=== PATIENT | male | born 1990 | race Caucasian/White ===

== ENCOUNTER 2022-06-30 18:40 | Inpatient (IN) | payer OTHER ==
[~2022-06-30] VITALS: Ht 182.9 cm; Wt 127.0 kg
--- NOTE | 2022-06-30 18:51 | NUR ---
BIBS WITH C/C OF FEVER OVER THE LAST 4 DAYS. PT IS COVID VACCINATED, PT TESTED NEGATIVE WITH HOME ANTIGEN TEST. DENIES ANY N/V. REPORTS SMITH AND HOME TEMP HIGH 103 TODAY AT 1700. PT ALSO DM WITH REPORTED POC GLUCOSE OF 447. PT TAKES XULTOPHY 50 UNIT QHS, LAST DOSE LAST NIGHT BUT WAS OFF MED FOR ONE WEEK.
[2022-06-30 19:00] VITALS: BP_SYST 131
[2022-06-30] MEDS ORDERED: ACETAMINOPHEN 325 MG TABLET PO ONE (19:15)
[2022-06-30 19:58] LABS: BASOPHILS # (AUTO) 0.2 K/uL (0.0-0.2); BASOPHILS % (AUTO) 1.6 % (0.0-2.0); EOSINOPHILS % (AUTO) 0.2 % (0.0-4.0); HEMATOCRIT 41.8 % (36-54); LYMPHOCYTES # (AUTO) 1.7 K/uL (1.0-5.5); LYMPHOCYTES % (AUTO) 14.2 % (20.5-51.5); MEAN CORPUSCULAR VOLUME 83 fL (79.0-98.0); MONOCYTES # (AUTO) 0.7 K/uL (0.0-1.0); MONOCYTES % (AUTO) 5.6 % (1.7-9.3); NEUTROPHILS # (AUTO) 9.2 K/uL (1.8-7.7); NEUTROPHILS % (AUTO) 78.4 % (40.0-70.0); PLATELET COUNT (AUTO) 211 K/uL (130-430); RED BLOOD CELL COUNT(AUTO) 5.06 MIL/uL (4.2-6.2); RED CELL DISTRIBUTION WIDTH 12.4 % (9.0-15.0); WHITE BLOOD COUNT (AUTO) 11.8 K/uL (4.8-10.8)
[2022-06-30 20:05] LABS: CALCIUM 9.5 mg/dL (8.4-11.0); POTASSIUM 4.1 mmol/L (3.5-5.1)
[2022-06-30 20:10] LABS: ALBUMIN 3.4 g/dL (3.4-4.8); TOTAL BILIRUBIN 1.7 mg/dL (0.0-1.0)
--- NOTE | 2022-06-30 20:59 | NUR ---
AT 8:40 COVID TEST WAS TAKEN BY SAMPLING BOTH NARES. DELIVERED TO LAB.
--- NOTE | 2022-06-30 21:00 | NUR ---
pt bib CC Headache and fever. Pt 99.4 Nausea and epsiode of vomiting this morning. Pt has lack of appetite. Pt onset 4 days ago.
[2022-06-30 21:15] LABS: BILIRUBIN,URINE 1+ (NEGATIVE); BLOOD, URINE NEGATIVE (NEGATIVE); CLARITY/URINE CLEAR (CLEAR); GLUCOSE,URINE 2+ (NEGATIVE); KETONES,URINE TRACE (NEGATIVE); LEUKOCYTE ESTERASE ,URINE NEGATIVE (NEGATIVE); NITRITE, URINE NEGATIVE (NEGATIVE); PROTEIN URINE 2+ (NEGATIVE)
[2022-06-30 21:23] LABS: COLOR,URINE AMBER (YELLOW)
[2022-06-30 21:24] LABS: BACTERIA,URINE None Seen /HPF (None Seen); RBC,URINE NONE SEEN /HPF (0-3); WBC,URINE 0-3 /HPF (0-3)
[2022-06-30 21:25] LABS: MUCUS,URINE None Seen /LPF (None Seen)
--- NOTE | 2022-06-30 23:34 | NUR ---
BLOOD SUGAR 243
[2022-07-01] MEDS ORDERED: NACL 0.9% 1,000 ML IV ONE (01:00)
[2022-07-01] MEDS ORDERED: ACETAMINOPHEN 500 MG TABLET PO ONE (02:00)
--- NOTE | 2022-07-01 03:32 | NUR ---
BLOOD SUGAR 241 AFTER A LITER OF NORMAL SALINE
[2022-07-01] MEDS ORDERED: AZITHROMYCIN 250 MG TABLET PO ONE (05:45)
[2022-07-01] MEDS ORDERED: cefTRIAXone 1 GM IVPB PREMIX 50 ML IV ONE (05:45)
--- NOTE | 2022-07-01 05:59 | NUR ---
Admit bed requested Patient will be admitted to care of Admitted to Telemetry unit. Diagnosis Respiratory failure, Lung Mass Inpatient (Yes or No) yes Observation (Yes or No) no Orientation concerns or request close to nursing station (Yes or No)no Covid Status negative On vent or bipap no Isolation requirements no Needs a sitter no From Home (Yes or if No enter name of facility) yes Requires Dialysis (Yes or No) no Med Rec Completed (Yes of No) yes
[2022-07-01] MEDS ORDERED: SERT100T PO (06:11)
[2022-07-01] MEDS ORDERED: DIVA-74 PO (06:12)
--- NOTE | 2022-07-01 07:05 | NUR ---
Opening Note: Report rcvd rom outgoing noc RN, all cares assumed.
--- NOTE | 2022-07-01 07:10 | NUR ---
RN GAVE REPORT TO DACIA BETTS FOR CONTINUITY OF CARE
--- NOTE | 2022-07-01 07:17 | NUR ---
Dr. Villagran at bedside discussing hermelinda of care with patient
[2022-07-01] MEDS ORDERED: ONDANSETRON HCL 4 MG/2 ML VIAL IVP PRN (07:45)
[2022-07-01] MEDS ORDERED: ACETAMINOPHEN 325 MG TABLET PO PRN ×2 (07:45→08:15)
[2022-07-01] MEDS ORDERED: HYDROcodone/ACETAMIN 10-325 MG TAB PO PRN (07:45)
[2022-07-01] MEDS ORDERED: NALOXONE HCL 0.4 MG/ML AMP (NARCAN) IVP PRN ×2 (07:45)
--- NOTE | 2022-07-01 08:00 | NUR ---
Patient remains calm and cooperative, denies pain and or discomfort
--- NOTE | 2022-07-01 08:23 | NUR ---
Breakfast tray ordered for patient
[2022-07-01] MEDS ORDERED: SERTRALINE HCL 50 MG TABLET PO SCH (09:00)
[2022-07-01 09:51] VITALS: BP_SYST 145
--- NOTE | 2022-07-01 10:03 | NUR ---
Tylenol given PRN for low grade
--- NOTE | 2022-07-01 11:10 | NUR ---
Patient asleep in no acute distress and or discomfort
--- NOTE | 2022-07-01 11:19 | NUR ---
BS 306, aware no new orders. Patient remains stable in no acute distress and or discomfort.
[2022-07-01] MEDS ORDERED: DIVALPROEX SODIUM 250 MG TABLET(DEPAKOTE) PO ONE (11:45)
[2022-07-01] MEDS: ALBUTEROL SULFATE 0.083% 2.5 MG/3 ML VIAL.NEB INH SCH ×3 (11:47→23:28)
[2022-07-01] MEDS: IPRATROPIUM BROM 0.5 MG/2.5 ML VIAL.NEB (ATROVENT) INH SCH ×3 (11:47→23:28)
--- NOTE | 2022-07-01 12:03 | NUR ---
Patient AOx4, remains at bedside, no acute distress patient remains afebrile, Orally 98.5
--- NOTE | 2022-07-01 12:55 | NUR ---
Lunch tray given to patient
[2022-07-01 13:12] LABS: BASOPHILS # (AUTO) 0.1 K/uL (0.0-0.2); BASOPHILS % (AUTO) 0.8 % (0.0-2.0); EOSINOPHILS % (AUTO) 0.4 % (0.0-4.0); HEMATOCRIT 38.5 % (36-54); LYMPHOCYTES # (AUTO) 2.1 K/uL (1.0-5.5); LYMPHOCYTES % (AUTO) 19.7 % (20.5-51.5); MEAN CORPUSCULAR VOLUME 82 fL (79.0-98.0); MONOCYTES # (AUTO) 0.8 K/uL (0.0-1.0); MONOCYTES % (AUTO) 7.9 % (1.7-9.3); NEUTROPHILS # (AUTO) 7.6 K/uL (1.8-7.7); NEUTROPHILS % (AUTO) 71.2 % (40.0-70.0); PLATELET COUNT (AUTO) 192 K/uL (130-430); RED BLOOD CELL COUNT(AUTO) 4.67 MIL/uL (4.2-6.2); RED CELL DISTRIBUTION WIDTH 12.5 % (9.0-15.0); WHITE BLOOD COUNT (AUTO) 10.7 K/uL (4.8-10.8)
[2022-07-01 13:43] LABS: CALCIUM 9.2 mg/dL (8.4-11.0); CREATININE 0.83 mg/dL (0.55-1.30); POTASSIUM 3.9 mmol/L (3.5-5.1)
[2022-07-01] MEDS ORDERED: DEXTROSE 50%-WATER 50 ML DISP.SYRIN IVP PRN (14:00)
[2022-07-01] MEDS ORDERED: GLUCOSE (DEXTROSE) ORAL GEL -Adults PO PRN (14:00)
[2022-07-01] MEDS ORDERED: D5W 1,000 ML IV PRN (14:00)
--- NOTE | 2022-07-01 14:28 | NUR ---
Patient will be admitted to care of Dr. Varma. Admitted to unit. Will go to room . Belongings list completed. Complete and up to date summary report printed. SBAR report to be given at bedside with opportunity for questions.
[2022-07-01 14:30] VITALS: BP_SYST 128
--- NOTE | 2022-07-01 14:30 | NUR ---
ADMISSION NOTE Received patient from ER via gurney. Patient admitted with diagnosis of respiratory failure; lung mass. Patient is awake, alert, oriented X 4. Patient oriented to hospital room, call light, toileting, pain management and safety-teach back done. Patient informed that their room number is 130A. Personal belongings checked and Belongings List documented. Call light within reach and instructed on how to use.
--- NOTE | 2022-07-01 14:35 | NUR ---
CONSULTATION PAGED REASON FOR CONSULTATION:LEUKOCYTOSIS WAS CONSULT CALLED?Y PERSON WHO WAS NOTIFIED:CHETNA CONSULTING PHYSICIAN:HOLLIS MONGE PLASTIC SURGERY ASSISTANT SPECIALTY:INFECTIOUS DISEASE PLASTIC SURGERY ASSISTANT PHONE NUMBER:[phone] REQUESTING PHYSICIAN:CHRISTOPH PALACIOS
--- NOTE | 2022-07-01 14:40 | NUR ---
CONSULTATION PAGED REASON FOR CONSULTATION:RF, LUNG MASS WAS CONSULT CALLED?Y PERSON WHO WAS NOTIFIED: CONSULTING PHYSICIAN:CELIO SESAY (BRIAN CRESPO TUBE TELLER) MARINA SALES AND SERVICE SUPERVISOR SPECIALTY:PULMONARY MARINA SALES AND SERVICE SUPERVISOR PHONE NUMBER:[phone] REQUESTING PHYSICIAN: CHRISTOPH PALACIOS
--- NOTE | 2022-07-01 14:44 | NUR ---
CONSULTATION PAGED REASON FOR CONSULTATION:RF, LUNG MASS WAS CONSULT CALLED?Y PERSON WHO WAS NOTIFIED:JANUARY CONSULTING PHYSICIAN:EUSEBIO TELLEZ CLIENT DEVELOPMENT MANAGER SPECIALTY:HEMATOLOGY,VISUALIZATION DEVELOPER PHONE NUMBER:[phone] REQUESTING PHYSICIAN:CHRISTOPH PALACIOS
[2022-07-01] MEDS: NORMAL SALINE 5 ML DISP.SYRIN IVF SCH ×2 (15:02→21:15)
[2022-07-01] MEDS: HYDROcodone/ACETAMIN 5-325 MG TAB (NORCO/ VICODIN) PO PRN (17:48)
[2022-07-01] MEDS: INSULIN REGULAR, HUMAN 100 UNITS/ML, 10 ML VIAL (humuLIN R) SUBCUT PRN ×2 (18:17→20:43)
--- NOTE | 2022-07-01 19:25 | NUR ---
CLOSING NOTE: PATIENT RESTING IN BED. NO S/S OF ACUTE DISTRESS NOTED. FALL AND SAFETY MEASURES PROVIDED. CALL LIGHT WITHIN REACH. ENDORSED TO JUNIOR ACCOUNTING CLERK RN.
[2022-07-01 20:00] VITALS: BP_SYST 136
[2022-07-01] MEDS: cefTRIAXone 1 GM in D5W 50 ML IV SCH (20:35)
[2022-07-01] MEDS: SERTRALINE HCL 50 MG TABLET PO SCH (20:37)
[2022-07-01] MEDS: AZITHROMYCIN 500 MG in NS 250 ML IV SCH (21:14)
[2022-07-02] MEDS: IPRATROPIUM BROM 0.5 MG/2.5 ML VIAL.NEB (ATROVENT) INH SCH ×6 (03:00→23:00)
[2022-07-02] MEDS: ALBUTEROL SULFATE 0.083% 2.5 MG/3 ML VIAL.NEB INH SCH ×6 (03:00→23:00)
[2022-07-02] MEDS: HYDROcodone/ACETAMIN 5-325 MG TAB (NORCO/ VICODIN) PO PRN (06:03)
[2022-07-02] MEDS: INSULIN REGULAR, HUMAN 100 UNITS/ML, 10 ML VIAL (humuLIN R) SUBCUT PRN ×3 (06:04→17:26)
[2022-07-02] MEDS: NORMAL SALINE 5 ML DISP.SYRIN IVF SCH ×3 (06:04→20:51)
--- NOTE | 2022-07-02 06:39 | NUR ---
Closing note- pt awake and oriented. c/o headache, medicated Temple 5-325 mg oral x 1. given Rocephin and Azithromycin last night as ordered. Unable to collect sputum specimen-No phlegm. No c/o sob. No need for albuterol breathing treatment. BS- 285 and 313. Covered with RISS.
[2022-07-02 08:00] VITALS: BP_SYST 111
--- NOTE | 2022-07-02 08:00 | NUR ---
OPENING NOTE: RECEIVED FROM EQUIPMENT HIRE MANAGER RN. PATIENT EATING BREAKFAST. BREATHING EVEN AND UNLABORED TO RA. FALL AND SAFETY MEASURES REINFORCED. BED LOCKED,ALARM ON AND IN LOWEST POSITION. CALL LIGHT WITHIN REACH.
[2022-07-02 08:50] LABS: CALCIUM 8.8 mg/dL (8.4-11.0); CREATININE 0.87 mg/dL (0.55-1.30); POTASSIUM 3.7 mmol/L (3.5-5.1)
[2022-07-02 09:13] LABS: BASOPHILS % (AUTO) 0.3 % (0.0-2.0); EOSINOPHILS % (AUTO) 0.2 % (0.0-4.0); HEMATOCRIT 36.5 % (36-54); LYMPHOCYTES # (AUTO) 1.4 K/uL (1.0-5.5); LYMPHOCYTES % (AUTO) 13.1 % (20.5-51.5); MEAN CORPUSCULAR VOLUME 83 fL (79.0-98.0); MONOCYTES # (AUTO) 0.9 K/uL (0.0-1.0); MONOCYTES % (AUTO) 8.8 % (1.7-9.3); NEUTROPHILS # (AUTO) 8.3 K/uL (1.8-7.7); NEUTROPHILS % (AUTO) 77.6 % (40.0-70.0); PLATELET COUNT (AUTO) 193 K/uL (130-430); RED BLOOD CELL COUNT(AUTO) 4.41 MIL/uL (4.2-6.2); RED CELL DISTRIBUTION WIDTH 12.5 % (9.0-15.0); WHITE BLOOD COUNT (AUTO) 10.6 K/uL (4.8-10.8)
[2022-07-02 10:14] LABS: C-REACTIVE PROTEIN QUANT 25.3 mg/dL (0-0.5)
[2022-07-02] MEDS ORDERED: guaiFENesin/DEXTROMETHORPHAN 118 ML PO PRN (11:00)
[2022-07-02 12:05] VITALS: BP_SYST 118
[2022-07-02 12:24] LABS: ERYTHROCYTE SEDIMENTATION RATE 24 MM/HR (0-15)
[2022-07-02 16:00] VITALS: BP_SYST 124
--- NOTE | 2022-07-02 19:25 | NUR ---
CLOSING NOTE: PATIENT RESTING IN BED. NO S/S OF ACUTE DISTRESS NOTED. FALL AND SAFETY MEASURES PROVIDED. CALL LIGHT WITHIN REACH. ENDORSED TO STOCK BLENDER RN.
[2022-07-02 20:00] VITALS: BP_SYST 125
[2022-07-02] MEDS: AZITHROMYCIN 500 MG in NS 250 ML IV SCH (20:51)
[2022-07-02] MEDS: SERTRALINE HCL 50 MG TABLET PO SCH (20:51)
[2022-07-02] MEDS: cefTRIAXone 1 GM in D5W 50 ML IV SCH (20:51)
[2022-07-02] MEDS ORDERED: DIVALPROEX SODIUM 250 MG TABLET(DEPAKOTE) PO SCH (21:00)
[2022-07-03] VITALS: BP_SYST 135
[2022-07-03] MEDS: ALBUTEROL SULFATE 0.083% 2.5 MG/3 ML VIAL.NEB INH SCH ×3 (03:00→11:42)
[2022-07-03] MEDS: IPRATROPIUM BROM 0.5 MG/2.5 ML VIAL.NEB (ATROVENT) INH SCH ×3 (03:00→11:43)
[2022-07-03] MEDS: NORMAL SALINE 5 ML DISP.SYRIN IVF SCH (06:00)
[2022-07-03 08:00] VITALS: BP_SYST 122
[2022-07-03 08:47] LABS: BASOPHILS % (AUTO) 0.4 % (0.0-2.0); EOSINOPHILS # (AUTO) 0.1 K/uL (0.0-0.4); EOSINOPHILS % (AUTO) 0.7 % (0.0-4.0); HEMATOCRIT 36.3 % (36-54); LYMPHOCYTES % (AUTO) 21.3 % (20.5-51.5); MEAN CORPUSCULAR VOLUME 83 fL (79.0-98.0); MONOCYTES # (AUTO) 0.7 K/uL (0.0-1.0); NEUTROPHILS # (AUTO) 6.5 K/uL (1.8-7.7); NEUTROPHILS % (AUTO) 69.6 % (40.0-70.0); PLATELET COUNT (AUTO) 207 K/uL (130-430); RED BLOOD CELL COUNT(AUTO) 4.39 MIL/uL (4.2-6.2); RED CELL DISTRIBUTION WIDTH 12.6 % (9.0-15.0); WHITE BLOOD COUNT (AUTO) 9.3 K/uL (4.8-10.8)
[2022-07-03 09:30] LABS: ALBUMIN 2.4 g/dL (3.4-4.8); CALCIUM 8.8 mg/dL (8.4-11.0); CREATININE 0.87 mg/dL (0.55-1.30); POTASSIUM 3.8 mmol/L (3.5-5.1); TOTAL BILIRUBIN 1.2 mg/dL (0.0-1.0)
[2022-07-03 10:42] LABS: ERYTHROCYTE SEDIMENTATION RATE 83 MM/HR (0-15)
[2022-07-03] MEDS ORDERED: ALBMDI INH (10:52)
[2022-07-03] MEDS ORDERED: AMOX-423 PO (10:52)
[2022-07-03 11:00] VITALS: BP_SYST 116
[2022-07-03 11:07] LABS: C-REACTIVE PROTEIN QUANT 26.9 mg/dL (0-0.5)
[2022-07-03 11:41] VITALS: BP_SYST 117
[2022-07-03 12:00] VITALS: BP_SYST 117
--- NOTE | 2022-07-03 12:33 | NUR ---
patient discharged in stable condition, vss, no pain
== END 2022-07-03 12:33 | disposition home or self-care (01) | DRG 194 ==
LOC: SED 18:40 → STU 07-01 05:49 → SMU 07-01 14:08
PROVIDERS: ADMIT Preventive Medicine Preventive Medicine/Occupational Environmental Medicine; ATTEND Preventive Medicine Preventive Medicine/Occupational Environmental Medicine
DX: J18.9 Pneumonia, unspecified organism (principal); E87.1 Hypo-osmolality and hyponatremia; R91.8 Other nonspecific abnormal finding of lung field; F31.9 Bipolar disorder, unspecified; E11.65 Type 2 diabetes mellitus with hyperglycemia; E66.9 Obesity, unspecified; E88.09 Other disorders of plasma-protein metabolism, not elsewhere classified; Z77.22 Contact with and (suspected) exposure to environmental tobacco smoke (acute) (chronic); Z20.822 Contact with and (suspected) exposure to COVID-19; Z86.16 Personal history of COVID-19; Z68.38 Body mass index [BMI] 38.0-38.9, adult
CPT/HCPCS: 36415; 36600; 71045; 71260-TC; 76376; 80048; 80053; 81000; 82962; 83605; 85025; 85651-TC; 86140; 87040; 93005; 94640; 94760; 96361; 96374; 99285; J0456; J0696; J1815; J7050; J7060; J7613; Q0144; Q9967